=== PATIENT | male | born 1940 | race Caucasian/White ===

== ENCOUNTER 2016-10-02 09:55 | Day surgery (SDC) | payer MEDICARE ==
[~2016-10-02 09:55] MED LIST: FENTANYL 250 MCG/5 ML AMP IV PRN; LACTATED RINGERS 1,000 ML IV SCH; MIDAZOLAM HCL 5 MG/5 ML VIAL IV PRN
[2016-10-02] MEDS ORDERED: SODIUM CHLORIDE 0.9% 1,000 ML ONE (10:15)
[2016-10-02] MEDS ORDERED: IV START KIT ONE (10:15)
[2016-10-02] MEDS ORDERED: LACTATED RINGERS 1,000 ML ONE (11:35)
[2016-10-02] MEDS ORDERED: MIDAZOLAM HCL 5 MG/5 ML VIAL ONE (11:35)
[2016-10-02] MEDS ORDERED: FENTANYL 250 MCG/5 ML AMP ONE (11:35)
== END 2016-10-02 12:50 | disposition home or self-care (01) ==
LOC: SDC 09:55
PROVIDERS: ATTEND Internal Medicine Gastroenterology
PROC: 0DJD8ZZ Inspection of Lower Intestinal Tract, Via Natural or Artificial Opening Endoscopic (ICD-10-PCS; principal; 2016-10-02)
DX: Z12.11 Encounter for screening for malignant neoplasm of colon (principal); K57.30 Diverticulosis of large intestine without perforation or abscess without bleeding; N40.0 Benign prostatic hyperplasia without lower urinary tract symptoms; I10 Essential (primary) hypertension; E78.5 Hyperlipidemia, unspecified; R12 Heartburn
CPT/HCPCS: 45378; J3010; J2250; J7120; J7030